=== PATIENT | female | born 1945 | race Caucasian/White ===

== ENCOUNTER 2019-12-25 14:46 | Emergency (ER) | payer OTHER ==
[~2019-12-25] VITALS: Ht 160 cm; Wt 127.0 kg
[2019-12-25 15:19] LABS: BASOPHILS ABSOLUTE AUTO 0.07 K/mm3 (0.00-0.23); BASOPHILS PERCENT AUTO 1 % (0-2); EOSINOPHILS ABSOLUTE AUTO 0.17 K/mm3 (0.00-0.68); EOSINOPHILS PERCENT AUTO 2 % (0-6); Hematocrit 45.2 % (33.0-51.0); Hemoglobin 14.8 g/dL (11.5-16.0); IMMATURE GRAN ABSOLUTE AUTO 0.02 K/mm3 (0.00-0.10); IMMATURE GRAN PERCENT AUTO 0 % (0-1); LYMPHOCYTES ABSOLUTE AUTO 2.44 K/mm3 (0.84-5.20); LYMPHOCYTES PERCENT AUTO 23 % (21-46); MONOCYTES ABSOLUTE AUTO 0.95 K/mm3 (0.16-1.47); MONOCYTES PERCENT AUTO 9 % (4-13); Mean Corpuscular HGB 29.4 pg (26.0-34.0); Mean Corpuscular HGB Conc 32.7 g/dL (31.5-36.5); Mean Corpuscular Volume 90 fL (80-100); Mean Platelet Volume 9.8 fL (9.1-12.4); NEUTROPHILS ABSOLUTE AUTO 7.17 K/mm3 (1.96-9.15); NEUTROPHILS PERCENT AUTO 66 % (41-73); Platelet Count 268 K/mm3 (150-400); RDW Standard Deviation 42.8 fL (35.1-46.3); Red Blood Cell Count 5.04 M/mm3 (3.80-5.20); White Blood Cell Count 10.82 K/mm3 (4.00-11.30)
[2019-12-25 15:33] LABS: Source, Urine Clean Catch
[2019-12-25 15:50] LABS: International Normalized Ratio No Calc; Prothrombin Time Results >90.0 Sec (9.7-11.5)
[2019-12-25 15:58] LABS: Appearance, Urine Clear (Clear); Bilirubin, Urine Neg (Neg); Blood, Urine 4+ (Neg); Color, Urine Yellow (P-Yellow); Glucose Qualitative, Urine Neg (Neg); Ketones, Urine Neg (Neg); Leukocyte Esterase, Urine 2+ (Neg); Nitrite, Urine Neg (Neg); Protein, Urine Neg (Neg); Urobilinogen, Urine NORM (Normal)
[2019-12-25 16:07] LABS: Digoxin (Lanoxin) 0.38 ug/mL (0.80-2.00)
[2019-12-25 16:08] LABS: Red Blood Cells, Urine 25-50 /hpf (0-2)
[2019-12-25 16:10] LABS: Bacteria Few /hpf; Squamous Epithelial Cells Few /hpf (Few)
[2019-12-25] MEDS ORDERED: ALBU90OI INH (16:44)
[2019-12-25] MEDS ORDERED: FURO40 PO (16:45)
[2019-12-25] MEDS ORDERED: GABA100 PO (16:45)
[2019-12-25] MEDS ORDERED: ATOR20 PO (16:45)
[2019-12-25] MEDS ORDERED: DILT180 PO (16:45)
[2019-12-25] MEDS ORDERED: LANOXIN125 MCG PO (16:45)
[2019-12-25] MEDS ORDERED: POTA10T PO (16:46)
[2019-12-25] MEDS ORDERED: METF500 PO (16:46)
[2019-12-25] MEDS ORDERED: LEVSOD112 PO (16:46)
[2019-12-25] MEDS ORDERED: IPRAT-ALBUT 0.5-3 ML INH (16:46)
[2019-12-25] MEDS ORDERED: METO100 PO (16:47)
[2019-12-25] MEDS ORDERED: Prilosec Otc20 MG PO (16:47)
[2019-12-25] MEDS ORDERED: Coumadin2.5 MG PO (16:48)
== END 2019-12-25 16:56 | disposition home or self-care (01) ==
LOC: ER 14:46
PROVIDERS: Physician Assistant
DX: R79.1 Abnormal coagulation profile (principal); I48.91 Unspecified atrial fibrillation; K21.9 Gastro-esophageal reflux disease without esophagitis; J45.909 Unspecified asthma, uncomplicated; E78.5 Hyperlipidemia, unspecified; E03.9 Hypothyroidism, unspecified; E66.9 Obesity, unspecified; Z79.01 Long term (current) use of anticoagulants; Z88.5 Allergy status to narcotic agent; Z79.899 Other long term (current) drug therapy; Z79.84 Long term (current) use of oral hypoglycemic drugs
CPT/HCPCS: 36415; 80162; 81001; 85025; 85610; 87086; 99283

== ENCOUNTER 2019-12-27 12:13 | Emergency (ER) | payer OTHER ==
[~2019-12-27] VITALS: Ht 167.6 cm; Wt 127.0 kg
[~2019-12-27 12:13] MED LIST: ALBU90OI INH; ATOR20 PO; Coumadin2.5 MG PO; DILT180 PO; FURO40 PO; GABA100 PO; IPRAT-ALBUT 0.5-3 ML INH; LANOXIN125 MCG PO; LEVSOD112 PO; METF500 PO; METO100 PO; POTA10T PO; Prilosec Otc20 MG PO
[2019-12-27 13:03] LABS: BASOPHILS ABSOLUTE AUTO 0.08 K/mm3 (0.00-0.23); BASOPHILS PERCENT AUTO 1 % (0-2); EOSINOPHILS ABSOLUTE AUTO 0.25 K/mm3 (0.00-0.68); EOSINOPHILS PERCENT AUTO 3 % (0-6); Hematocrit 45.7 % (33.0-51.0); Hemoglobin 15.1 g/dL (11.5-16.0); IMMATURE GRAN ABSOLUTE AUTO 0.02 K/mm3 (0.00-0.10); IMMATURE GRAN PERCENT AUTO 0 % (0-1); LYMPHOCYTES ABSOLUTE AUTO 2.56 K/mm3 (0.84-5.20); LYMPHOCYTES PERCENT AUTO 26 % (21-46); MONOCYTES ABSOLUTE AUTO 0.68 K/mm3 (0.16-1.47); MONOCYTES PERCENT AUTO 7 % (4-13); Mean Corpuscular HGB 29.4 pg (26.0-34.0); Mean Corpuscular Volume 89 fL (80-100); Mean Platelet Volume 9.9 fL (9.1-12.4); NEUTROPHILS PERCENT AUTO 63 % (41-73); Platelet Count 262 K/mm3 (150-400); RDW Coefficient Variation 12.7 % (11.7-14.2); Red Blood Cell Count 5.13 M/mm3 (3.80-5.20); White Blood Cell Count 9.79 K/mm3 (4.00-11.30)
[2019-12-27 13:20] LABS: International Normalized Ratio 2.13; Prothrombin Time Results 21.8 Sec (9.7-11.5)
[2019-12-27 13:24] LABS: Alanine Aminotransfer (ALT/SGP 19 U/L (12-78); Albumin, Blood 3.4 g/dL (3.4-5.0); Albumin/Globulin Ratio 0.7 (0.8-1.8); Alk Phos 118 U/L (50-136); Anion Gap 6 mmol/L (6-16); Aspartate Aminotrans (AST/SGOT 20 U/L (12-37); Bilirubin, Total 0.6 mg/dL (0.1-1.0); Blood Urea Nitrogen 11 mg/dL (8-24); Bun/Creatinine Ratio 13.2 (12.0-20.0); CO2, Blood 29 mmol/L (21-32); Calcium, Blood 9.2 mg/dL (8.5-10.1); Chloride, Blood 103 mmol/L (98-108); Creatinine, Blood 0.83 mg/dL (0.40-1.00); Globulin, Blood 4.8 g/dL (2.2-4.0); Glomerular Filtration Rate >60 (60-); Glucose, Blood 143 mg/dL (70-99); Potassium, Blood 3.4 mmol/L (3.5-5.5); Sodium, Blood 138 mmol/L (136-145); Total Protein, Blood 8.2 g/dL (6.4-8.2)
== END 2019-12-27 15:27 | disposition home or self-care (01) ==
LOC: ER 12:13
PROVIDERS: Physician Assistant
DX: R79.1 Abnormal coagulation profile (principal); Z79.899 Other long term (current) drug therapy; Z79.84 Long term (current) use of oral hypoglycemic drugs; Z79.01 Long term (current) use of anticoagulants
CPT/HCPCS: 36415; 80053; 85025; 85610; 85730; 99283

== ENCOUNTER → 2020-01-16 | Outpatient (CLI) | payer OTHER ==
[~2020-01-16] MED LIST changes: +HUMIRA40 MG/0.2 INJ; +LOSA25 PO; +MELATONIN10 M6 PO; +METO25ER PO; +XARELTO20 MG PO
[2020-01-16 20:07] LABS: Creatinine Urine 72.3 mg/dL (27.00-270.00); Protein, Urine Quantitative 33.4 mg/dL (0.0-11.9)
[2020-01-16 20:10] LABS: Microalbumin, Urine Quant. 86.1 mg/L (0.000-20.000)
== END | disposition home or self-care (01) ==
LOC: LAB UCHC 15:10 → LAB SHORT 15:10
PROVIDERS: Internal Medicine Nephrology
DX: E11.21 Type 2 diabetes mellitus with diabetic nephropathy (principal); E11.22 Type 2 diabetes mellitus with diabetic chronic kidney disease; N18.2 Chronic kidney disease, stage 2 (mild); D63.1 Anemia in chronic kidney disease; N25.81 Secondary hyperparathyroidism of renal origin; E55.9 Vitamin D deficiency, unspecified; E78.00 Pure hypercholesterolemia, unspecified; R76.9 Abnormal immunological finding in serum, unspecified; R94.5 Abnormal results of liver function studies; R94.6 Abnormal results of thyroid function studies
CPT/HCPCS: 81050; 82043; 82570; 84156

== ENCOUNTER 2020-01-20 00:32 | Day surgery (SDC) | payer OTHER ==
[~2020-01-20 00:32] MED LIST changes: -HUMIRA40 MG/0.2 INJ; -LOSA25 PO; -MELATONIN10 M6 PO; -METO25ER PO; -XARELTO20 MG PO
== END 2020-01-20 22:57 | disposition home or self-care (01) ==
LOC: WOUND 00:32
DX: I87.2 Venous insufficiency (chronic) (peripheral) (principal); E11.40 Type 2 diabetes mellitus with diabetic neuropathy, unspecified; I87.319 Chronic venous hypertension (idiopathic) with ulcer of unspecified lower extremity; E11.622 Type 2 diabetes mellitus with other skin ulcer; E11.59 Type 2 diabetes mellitus with other circulatory complications; Z88.5 Allergy status to narcotic agent; Z88.8 Allergy status to other drugs, medicaments and biological substances; Z87.891 Personal history of nicotine dependence; J45.909 Unspecified asthma, uncomplicated; E11.51 Type 2 diabetes mellitus with diabetic peripheral angiopathy without gangrene; Z79.899 Other long term (current) drug therapy; Z79.01 Long term (current) use of anticoagulants; Z79.84 Long term (current) use of oral hypoglycemic drugs
CPT/HCPCS: G0463

== ENCOUNTER 2020-01-27 00:18 | Day surgery (SDC) | payer OTHER | END 2020-01-27 23:07 | disposition home or self-care (01) | LOC: WOUND 00:18 | DX: E11.622 Type 2 diabetes mellitus with other skin ulcer (principal); L97.822 Non-pressure chronic ulcer of other part of left lower leg with fat layer exposed; E11.52 Type 2 diabetes mellitus with diabetic peripheral angiopathy with gangrene; I96 Gangrene, not elsewhere classified; I87.312 Chronic venous hypertension (idiopathic) with ulcer of left lower extremity; E11.40 Type 2 diabetes mellitus with diabetic neuropathy, unspecified; I87.2 Venous insufficiency (chronic) (peripheral); E11.59 Type 2 diabetes mellitus with other circulatory complications; I48.91 Unspecified atrial fibrillation; E11.36 Type 2 diabetes mellitus with diabetic cataract; H26.9 Unspecified cataract; D64.9 Anemia, unspecified; G47.30 Sleep apnea, unspecified; I49.9 Cardiac arrhythmia, unspecified; M19.90 Unspecified osteoarthritis, unspecified site; Z79.01 Long term (current) use of anticoagulants; Z79.84 Long term (current) use of oral hypoglycemic drugs; Z79.51 Long term (current) use of inhaled steroids; Z79.899 Other long term (current) drug therapy | CPT/HCPCS: G0463 ==

== ENCOUNTER 2020-02-03 00:23 | Day surgery (SDC) | payer OTHER | END 2020-02-03 23:49 | disposition home or self-care (01) | LOC: WOUND 00:23 | DX: E11.40 Type 2 diabetes mellitus with diabetic neuropathy, unspecified (principal); I87.2 Venous insufficiency (chronic) (peripheral); I87.319 Chronic venous hypertension (idiopathic) with ulcer of unspecified lower extremity; E11.622 Type 2 diabetes mellitus with other skin ulcer; E11.59 Type 2 diabetes mellitus with other circulatory complications; Z79.899 Other long term (current) drug therapy; Z79.84 Long term (current) use of oral hypoglycemic drugs ==

== ENCOUNTER 2020-02-05 06:40 | Day surgery (SDC) | payer OTHER | END 2020-02-05 22:52 | disposition home or self-care (01) | LOC: WOUND 06:40 | DX: E11.622 Type 2 diabetes mellitus with other skin ulcer (principal); L97.822 Non-pressure chronic ulcer of other part of left lower leg with fat layer exposed; E11.52 Type 2 diabetes mellitus with diabetic peripheral angiopathy with gangrene; I96 Gangrene, not elsewhere classified; E11.40 Type 2 diabetes mellitus with diabetic neuropathy, unspecified; I87.312 Chronic venous hypertension (idiopathic) with ulcer of left lower extremity; I87.2 Venous insufficiency (chronic) (peripheral); E11.59 Type 2 diabetes mellitus with other circulatory complications; E11.36 Type 2 diabetes mellitus with diabetic cataract; H26.9 Unspecified cataract; D64.9 Anemia, unspecified; I89.0 Lymphedema, not elsewhere classified; J45.909 Unspecified asthma, uncomplicated; G47.30 Sleep apnea, unspecified; M19.90 Unspecified osteoarthritis, unspecified site; Z79.51 Long term (current) use of inhaled steroids; Z79.84 Long term (current) use of oral hypoglycemic drugs; Z79.01 Long term (current) use of anticoagulants; Z79.899 Other long term (current) drug therapy; Z88.5 Allergy status to narcotic agent ==

== ENCOUNTER 2020-02-12 01:27 | Day surgery (SDC) | payer OTHER | END 2020-02-12 23:15 | disposition home or self-care (01) | LOC: WOUND 01:27 | DX: E11.622 Type 2 diabetes mellitus with other skin ulcer (principal); L97.822 Non-pressure chronic ulcer of other part of left lower leg with fat layer exposed; I87.312 Chronic venous hypertension (idiopathic) with ulcer of left lower extremity; E11.59 Type 2 diabetes mellitus with other circulatory complications; I87.2 Venous insufficiency (chronic) (peripheral); E11.40 Type 2 diabetes mellitus with diabetic neuropathy, unspecified; E11.36 Type 2 diabetes mellitus with diabetic cataract; H26.9 Unspecified cataract; D64.9 Anemia, unspecified; I89.0 Lymphedema, not elsewhere classified; J45.909 Unspecified asthma, uncomplicated; M19.90 Unspecified osteoarthritis, unspecified site; Z79.51 Long term (current) use of inhaled steroids; Z79.899 Other long term (current) drug therapy; Z79.01 Long term (current) use of anticoagulants; Z79.84 Long term (current) use of oral hypoglycemic drugs; Z88.5 Allergy status to narcotic agent ==

== ENCOUNTER 2020-02-20 00:28 | Day surgery (SDC) | payer OTHER ==
[2020-08-21] MEDS ORDERED: HUMIRA40 MG/0.2 INJ (17:00)
[2020-08-21] MEDS ORDERED: LOSA25 PO (17:03)
[2020-08-21] MEDS ORDERED: MELATONIN10 M6 PO (17:03)
[2020-08-21] MEDS ORDERED: METO25ER PO (17:04)
[2020-08-21] MEDS ORDERED: XARELTO20 MG PO (17:04)
== END 2020-02-20 23:36 | disposition home or self-care (01) ==
LOC: WOUND 00:28
DX: I87.312 Chronic venous hypertension (idiopathic) with ulcer of left lower extremity (principal); I48.91 Unspecified atrial fibrillation; E11.40 Type 2 diabetes mellitus with diabetic neuropathy, unspecified; E11.59 Type 2 diabetes mellitus with other circulatory complications; E11.622 Type 2 diabetes mellitus with other skin ulcer; L97.822 Non-pressure chronic ulcer of other part of left lower leg with fat layer exposed; I87.2 Venous insufficiency (chronic) (peripheral); Z79.01 Long term (current) use of anticoagulants
CPT/HCPCS: A9270

== ENCOUNTER 2020-02-28 02:11 | Day surgery (SDC) | payer OTHER ==
[2020-08-21] MEDS ORDERED: HUMIRA40 MG/0.2 INJ (17:00)
[2020-08-21] MEDS ORDERED: MELATONIN10 M6 PO (17:03)
[2020-08-21] MEDS ORDERED: LOSA25 PO (17:03)
[2020-08-21] MEDS ORDERED: XARELTO20 MG PO (17:04)
[2020-08-21] MEDS ORDERED: METO25ER PO (17:04)
== END 2020-02-28 23:56 | disposition home or self-care (01) ==
LOC: WOUND 02:11
DX: I87.312 Chronic venous hypertension (idiopathic) with ulcer of left lower extremity (principal); L97.822 Non-pressure chronic ulcer of other part of left lower leg with fat layer exposed; E11.40 Type 2 diabetes mellitus with diabetic neuropathy, unspecified; I87.2 Venous insufficiency (chronic) (peripheral); E11.622 Type 2 diabetes mellitus with other skin ulcer; E11.59 Type 2 diabetes mellitus with other circulatory complications; I48.91 Unspecified atrial fibrillation; Z79.84 Long term (current) use of oral hypoglycemic drugs; Z79.01 Long term (current) use of anticoagulants; Z79.899 Other long term (current) drug therapy
CPT/HCPCS: A9270

== ENCOUNTER 2020-03-03 00:31 | Day surgery (SDC) | payer OTHER ==
[2020-08-21] MEDS ORDERED: HUMIRA40 MG/0.2 INJ (17:00)
[2020-08-21] MEDS ORDERED: MELATONIN10 M6 PO (17:03)
[2020-08-21] MEDS ORDERED: LOSA25 PO (17:03)
[2020-08-21] MEDS ORDERED: METO25ER PO (17:04)
[2020-08-21] MEDS ORDERED: XARELTO20 MG PO (17:04)
== END 2020-03-03 23:17 | disposition home or self-care (01) ==
LOC: WOUND 00:31
DX: E11.622 Type 2 diabetes mellitus with other skin ulcer (principal); E11.40 Type 2 diabetes mellitus with diabetic neuropathy, unspecified; I87.2 Venous insufficiency (chronic) (peripheral); I87.319 Chronic venous hypertension (idiopathic) with ulcer of unspecified lower extremity; E11.59 Type 2 diabetes mellitus with other circulatory complications; Z79.84 Long term (current) use of oral hypoglycemic drugs; Z79.899 Other long term (current) drug therapy; Z88.5 Allergy status to narcotic agent
CPT/HCPCS: 36415; 80048; 80069; 80162; 85610

== ENCOUNTER 2020-03-06 00:35 | Day surgery (SDC) | payer OTHER ==
[2020-08-21] MEDS ORDERED: HUMIRA40 MG/0.2 INJ (17:00)
[2020-08-21] MEDS ORDERED: LOSA25 PO (17:03)
[2020-08-21] MEDS ORDERED: MELATONIN10 M6 PO (17:03)
[2020-08-21] MEDS ORDERED: XARELTO20 MG PO (17:04)
[2020-08-21] MEDS ORDERED: METO25ER PO (17:04)
== END 2020-03-06 22:47 | disposition home or self-care (01) ==
LOC: WOUND 00:35
DX: E11.622 Type 2 diabetes mellitus with other skin ulcer (principal); L97.829 Non-pressure chronic ulcer of other part of left lower leg with unspecified severity; E11.40 Type 2 diabetes mellitus with diabetic neuropathy, unspecified; E11.59 Type 2 diabetes mellitus with other circulatory complications; I87.319 Chronic venous hypertension (idiopathic) with ulcer of unspecified lower extremity
CPT/HCPCS: G0463

== ENCOUNTER → 2020-04-17 | Outpatient (CLI) | payer OTHER ==
[~2020-04-17] MED LIST changes: +HUMIRA40 MG/0.2 INJ; +LOSA25 PO; +MELATONIN10 M6 PO; +METO25ER PO; +XARELTO20 MG PO
== END | disposition home or self-care (01) ==
LOC: LAB 13:34 → LAB SHORT 13:34
DX: L08.9 Local infection of the skin and subcutaneous tissue, unspecified (principal)
CPT/HCPCS: 87070; 87077; 87186; 87205

== ENCOUNTER 2020-07-16 05:30 | Day surgery (SDC) | payer OTHER ==
[~2020-07-16 05:30] MED LIST changes: -HUMIRA40 MG/0.2 INJ; -LOSA25 PO; -MELATONIN10 M6 PO; -METO25ER PO; -XARELTO20 MG PO
[2020-08-21] MEDS ORDERED: HUMIRA40 MG/0.2 INJ (17:00)
[2020-08-21] MEDS ORDERED: MELATONIN10 M6 PO (17:03)
[2020-08-21] MEDS ORDERED: LOSA25 PO (17:03)
[2020-08-21] MEDS ORDERED: XARELTO20 MG PO (17:04)
[2020-08-21] MEDS ORDERED: METO25ER PO (17:04)
== END 2020-07-16 22:48 | disposition home or self-care (01) ==
LOC: WOUND 05:30
DX: L97.822 Non-pressure chronic ulcer of other part of left lower leg with fat layer exposed (principal); E11.40 Type 2 diabetes mellitus with diabetic neuropathy, unspecified; I87.2 Venous insufficiency (chronic) (peripheral); I87.319 Chronic venous hypertension (idiopathic) with ulcer of unspecified lower extremity; E11.622 Type 2 diabetes mellitus with other skin ulcer; E11.59 Type 2 diabetes mellitus with other circulatory complications
CPT/HCPCS: A9270; G0463

== ENCOUNTER 2020-07-28 01:28 | Day surgery (SDC) | payer OTHER ==
[2020-08-21] MEDS ORDERED: HUMIRA40 MG/0.2 INJ (17:00)
[2020-08-21] MEDS ORDERED: MELATONIN10 M6 PO (17:03)
[2020-08-21] MEDS ORDERED: LOSA25 PO (17:03)
[2020-08-21] MEDS ORDERED: METO25ER PO (17:04)
[2020-08-21] MEDS ORDERED: XARELTO20 MG PO (17:04)
== END 2020-07-28 22:59 | disposition home or self-care (01) ==
LOC: WOUND 01:28
DX: E11.622 Type 2 diabetes mellitus with other skin ulcer (principal); L97.822 Non-pressure chronic ulcer of other part of left lower leg with fat layer exposed; L97.812 Non-pressure chronic ulcer of other part of right lower leg with fat layer exposed; S91.102A Unspecified open wound of left great toe without damage to nail, initial encounter; X58.XXXA Exposure to other specified factors, initial encounter; E11.59 Type 2 diabetes mellitus with other circulatory complications; E11.40 Type 2 diabetes mellitus with diabetic neuropathy, unspecified; I87.2 Venous insufficiency (chronic) (peripheral); I87.319 Chronic venous hypertension (idiopathic) with ulcer of unspecified lower extremity
CPT/HCPCS: A9270

== ENCOUNTER 2020-07-31 04:45 | Day surgery (SDC) | payer OTHER ==
[2020-08-21] MEDS ORDERED: HUMIRA40 MG/0.2 INJ (17:00)
[2020-08-21] MEDS ORDERED: MELATONIN10 M6 PO (17:03)
[2020-08-21] MEDS ORDERED: LOSA25 PO (17:03)
[2020-08-21] MEDS ORDERED: METO25ER PO (17:04)
[2020-08-21] MEDS ORDERED: XARELTO20 MG PO (17:04)
== END 2020-07-31 23:54 | disposition home or self-care (01) ==
LOC: WOUND 04:45
DX: S81.801A Unspecified open wound, right lower leg, initial encounter (principal); S81.802A Unspecified open wound, left lower leg, initial encounter; E11.9 Type 2 diabetes mellitus without complications

== ENCOUNTER 2020-08-04 05:02 | Day surgery (SDC) | payer OTHER ==
[2020-08-21] MEDS ORDERED: HUMIRA40 MG/0.2 INJ (17:00)
[2020-08-21] MEDS ORDERED: LOSA25 PO (17:03)
[2020-08-21] MEDS ORDERED: MELATONIN10 M6 PO (17:03)
[2020-08-21] MEDS ORDERED: METO25ER PO (17:04)
[2020-08-21] MEDS ORDERED: XARELTO20 MG PO (17:04)
== END 2020-08-04 23:15 | disposition home or self-care (01) ==
LOC: WOUND 05:02
DX: E11.622 Type 2 diabetes mellitus with other skin ulcer (principal); L97.822 Non-pressure chronic ulcer of other part of left lower leg with fat layer exposed; L97.812 Non-pressure chronic ulcer of other part of right lower leg with fat layer exposed; E11.40 Type 2 diabetes mellitus with diabetic neuropathy, unspecified; I87.2 Venous insufficiency (chronic) (peripheral); I87.319 Chronic venous hypertension (idiopathic) with ulcer of unspecified lower extremity; E11.59 Type 2 diabetes mellitus with other circulatory complications
CPT/HCPCS: A9270

== ENCOUNTER → 2020-08-11 | Outpatient (CLI) | payer OTHER ==
[~2020-08-11] MED LIST changes: +HUMIRA40 MG/0.2 INJ; +LOSA25 PO; +MELATONIN10 M6 PO; +METO25ER PO; +XARELTO20 MG PO
== END | disposition home or self-care (01) ==
LOC: LAB SHORT 10:24
DX: N18.2 Chronic kidney disease, stage 2 (mild) (principal); D63.1 Anemia in chronic kidney disease; N25.81 Secondary hyperparathyroidism of renal origin; E55.9 Vitamin D deficiency, unspecified; E78.00 Pure hypercholesterolemia, unspecified; R76.9 Abnormal immunological finding in serum, unspecified; R94.5 Abnormal results of liver function studies; R94.6 Abnormal results of thyroid function studies
CPT/HCPCS: 86335

== ENCOUNTER 2020-08-12 02:55 | Day surgery (SDC) | payer OTHER ==
[~2020-08-12 02:55] MED LIST changes: -HUMIRA40 MG/0.2 INJ; -LOSA25 PO; -MELATONIN10 M6 PO; -METO25ER PO; -XARELTO20 MG PO
[2020-08-21] MEDS ORDERED: HUMIRA40 MG/0.2 INJ (17:00)
[2020-08-21] MEDS ORDERED: MELATONIN10 M6 PO (17:03)
[2020-08-21] MEDS ORDERED: LOSA25 PO (17:03)
[2020-08-21] MEDS ORDERED: METO25ER PO (17:04)
[2020-08-21] MEDS ORDERED: XARELTO20 MG PO (17:04)
== END 2020-08-12 23:39 | disposition home or self-care (01) ==
LOC: WOUND 02:55
DX: I87.319 Chronic venous hypertension (idiopathic) with ulcer of unspecified lower extremity (principal); E11.622 Type 2 diabetes mellitus with other skin ulcer; E11.40 Type 2 diabetes mellitus with diabetic neuropathy, unspecified; I87.2 Venous insufficiency (chronic) (peripheral); E11.59 Type 2 diabetes mellitus with other circulatory complications
CPT/HCPCS: A9270

== ENCOUNTER 2020-08-19 01:13 | Day surgery (SDC) | payer OTHER ==
[2020-08-21] MEDS ORDERED: HUMIRA40 MG/0.2 INJ (17:00)
[2020-08-21] MEDS ORDERED: LOSA25 PO (17:03)
[2020-08-21] MEDS ORDERED: MELATONIN10 M6 PO (17:03)
[2020-08-21] MEDS ORDERED: METO25ER PO (17:04)
[2020-08-21] MEDS ORDERED: XARELTO20 MG PO (17:04)
== END 2020-08-19 23:52 | disposition home or self-care (01) ==
LOC: WOUND 01:13
DX: E11.622 Type 2 diabetes mellitus with other skin ulcer (principal); L97.822 Non-pressure chronic ulcer of other part of left lower leg with fat layer exposed; E11.59 Type 2 diabetes mellitus with other circulatory complications; E11.40 Type 2 diabetes mellitus with diabetic neuropathy, unspecified; I87.2 Venous insufficiency (chronic) (peripheral); I87.319 Chronic venous hypertension (idiopathic) with ulcer of unspecified lower extremity
CPT/HCPCS: A9270

== ENCOUNTER 2020-08-24 08:52 | Day surgery (SDC) | payer OTHER ==
[~2020-08-24] VITALS: Ht 167.6 cm; Wt 128.6 kg
[~2020-08-24 08:52] MED LIST changes: +HUMIRA40 MG/0.2 INJ; +LOSA25 PO; +MELATONIN10 M6 PO; +METO25ER PO; +XARELTO20 MG PO
[2020-08-24 09:33] LABS: BASOPHILS ABSOLUTE AUTO 0.07 K/mm3 (0.00-0.23); BASOPHILS PERCENT AUTO 1 % (0-2); EOSINOPHILS ABSOLUTE AUTO 0.39 K/mm3 (0.00-0.68); EOSINOPHILS PERCENT AUTO 5 % (0-6); Hematocrit 42.8 % (33.0-51.0); Hemoglobin 13.7 g/dL (11.5-16.0); IMMATURE GRAN ABSOLUTE AUTO 0.02 K/mm3 (0.00-0.10); IMMATURE GRAN PERCENT AUTO 0 % (0-1); LYMPHOCYTES ABSOLUTE AUTO 2.12 K/mm3 (0.84-5.20); LYMPHOCYTES PERCENT AUTO 26 % (21-46); MONOCYTES ABSOLUTE AUTO 0.67 K/mm3 (0.16-1.47); MONOCYTES PERCENT AUTO 8 % (4-13); Mean Corpuscular HGB 29.3 pg (26.0-34.0); Mean Corpuscular Volume 92 fL (80-100); Mean Platelet Volume 10.1 fL (9.1-12.4); NEUTROPHILS ABSOLUTE AUTO 4.82 K/mm3 (1.96-9.15); NEUTROPHILS PERCENT AUTO 60 % (41-73); Platelet Count 218 K/mm3 (150-400); RDW Coefficient Variation 13.8 % (11.7-14.2); RDW Standard Deviation 46.8 fL (35.1-46.3); Red Blood Cell Count 4.67 M/mm3 (3.80-5.20); White Blood Cell Count 8.09 K/mm3 (4.00-11.30)
[2020-08-24 09:46] LABS: International Normalized Ratio 1.02
[2020-08-24 09:57] LABS: Anion Gap 4 mmol/L (6-16); Blood Urea Nitrogen 15 mg/dL (8-24); CO2, Blood 31 mmol/L (21-32); Calcium, Blood 9.3 mg/dL (8.5-10.1); Chloride, Blood 104 mmol/L (98-108); Creatinine, Blood 0.83 mg/dL (0.40-1.00); Glomerular Filtration Rate >60 (60-); Glucose, Blood 102 mg/dL (70-99); Potassium, Blood 3.4 mmol/L (3.5-5.5); Sodium, Blood 139 mmol/L (136-145)
--- NOTE | 2020-08-24 11:45 | NUR ---
.TO RECOVERY ROOM VIA RECLINER. RIGHT HAND IS BLUE. WIGGLED FINGERS AND HAND PINKS UP. TR BAND WITH 11 CC AIR. DENIES CHEST PAIN AT THIS TIME. CD MADE.
--- NOTE | 2020-08-24 13:36 | NUR ---
2 CC AIR REMOVED FROM TR BAND. NO BLEEDING AT SITE. REMINDER OF AIR REMOVED OVER 10 MINUTES FROM TR BAND. NO BLEEDING AT SITE.
--- NOTE | 2020-08-24 13:57 | NUR ---
AMBULATED TO BATHROOM. TOLERATED WELL.
--- NOTE | 2020-08-24 14:30 | NUR ---
TR BAND REMOVED BY PADMINI SPICER. CLOTH DOT, IMMOBILIZER AND SLING APPLIED. DISCHARGE INSTRUCTIONS GIVEN WITH VERBAL AND WRITTEN UNDERSTANDING. CD WITH PT.
--- NOTE | 2020-08-24 15:00 | NUR ---
IV REMOVED INTACT. 2X2, COBAN AND MANUAL PRESSURE APPLIED.
--- NOTE | 2020-08-24 15:15 | NUR ---
DISCHARGED HOME VIA WHEELCHAIR. DAUGHTER DRIVING.
== END 2020-08-24 15:39 | disposition home or self-care (01) ==
LOC: MHTC 08:52
PROVIDERS: Internal Medicine Cardiovascular Disease
DX: I35.0 Nonrheumatic aortic (valve) stenosis (principal); I25.10 Atherosclerotic heart disease of native coronary artery without angina pectoris; I48.0 Paroxysmal atrial fibrillation; I10 Essential (primary) hypertension; E11.9 Type 2 diabetes mellitus without complications; E03.9 Hypothyroidism, unspecified; E66.01 Morbid (severe) obesity due to excess calories; J44.9 Chronic obstructive pulmonary disease, unspecified; G47.33 Obstructive sleep apnea (adult) (pediatric); I87.2 Venous insufficiency (chronic) (peripheral); E78.00 Pure hypercholesterolemia, unspecified; Z88.5 Allergy status to narcotic agent; Z79.01 Long term (current) use of anticoagulants; Z68.42 Body mass index [BMI] 45.0-49.9, adult
CPT/HCPCS: 76937; 80048; 85025; 85610; 93454; 99152; A9270; C1769; C1894; J1644; J2250; J3010; J7030; J7050; Q9967

== ENCOUNTER 2020-08-25 01:01 | Day surgery (SDC) | payer OTHER | END 2020-08-25 23:31 | disposition home or self-care (01) | LOC: WOUND 01:01 | DX: E11.622 Type 2 diabetes mellitus with other skin ulcer (principal); L97.829 Non-pressure chronic ulcer of other part of left lower leg with unspecified severity; E11.40 Type 2 diabetes mellitus with diabetic neuropathy, unspecified; I87.2 Venous insufficiency (chronic) (peripheral); I87.319 Chronic venous hypertension (idiopathic) with ulcer of unspecified lower extremity; E11.59 Type 2 diabetes mellitus with other circulatory complications ==

== ENCOUNTER 2020-09-02 02:08 | Day surgery (SDC) | payer OTHER | END 2020-09-02 23:32 | disposition home or self-care (01) | LOC: WOUND 02:08 | DX: L97.822 Non-pressure chronic ulcer of other part of left lower leg with fat layer exposed (principal); I87.2 Venous insufficiency (chronic) (peripheral); E11.622 Type 2 diabetes mellitus with other skin ulcer; E11.40 Type 2 diabetes mellitus with diabetic neuropathy, unspecified; I87.319 Chronic venous hypertension (idiopathic) with ulcer of unspecified lower extremity; E11.59 Type 2 diabetes mellitus with other circulatory complications; Z88.5 Allergy status to narcotic agent | CPT/HCPCS: A9270 ==

== ENCOUNTER 2020-09-09 01:29 | Day surgery (SDC) | payer OTHER | END 2020-09-09 22:47 | disposition home or self-care (01) | LOC: WOUND 01:29 | DX: L97.829 Non-pressure chronic ulcer of other part of left lower leg with unspecified severity (principal); E11.622 Type 2 diabetes mellitus with other skin ulcer; E11.40 Type 2 diabetes mellitus with diabetic neuropathy, unspecified; I87.2 Venous insufficiency (chronic) (peripheral); I87.319 Chronic venous hypertension (idiopathic) with ulcer of unspecified lower extremity; E11.59 Type 2 diabetes mellitus with other circulatory complications | CPT/HCPCS: A9270; G0463 ==

== ENCOUNTER 2020-09-16 01:28 | Day surgery (SDC) | payer OTHER | END 2020-09-16 23:15 | disposition home or self-care (01) | LOC: WOUND 01:28 | DX: E11.622 Type 2 diabetes mellitus with other skin ulcer (principal); L97.829 Non-pressure chronic ulcer of other part of left lower leg with unspecified severity; E11.40 Type 2 diabetes mellitus with diabetic neuropathy, unspecified; I87.2 Venous insufficiency (chronic) (peripheral); I87.319 Chronic venous hypertension (idiopathic) with ulcer of unspecified lower extremity; E11.59 Type 2 diabetes mellitus with other circulatory complications | CPT/HCPCS: G0463 ==

== ENCOUNTER 2020-09-23 01:37 | Day surgery (SDC) | payer OTHER | END 2020-09-23 22:47 | disposition home or self-care (01) | LOC: WOUND 01:37 | DX: E11.622 Type 2 diabetes mellitus with other skin ulcer (principal); L97.828 Non-pressure chronic ulcer of other part of left lower leg with other specified severity; E11.40 Type 2 diabetes mellitus with diabetic neuropathy, unspecified; E11.59 Type 2 diabetes mellitus with other circulatory complications; I87.319 Chronic venous hypertension (idiopathic) with ulcer of unspecified lower extremity; I87.2 Venous insufficiency (chronic) (peripheral) | CPT/HCPCS: G0463 ==

== ENCOUNTER 2020-09-30 02:43 | Day surgery (SDC) | payer OTHER | END 2020-09-30 23:17 | disposition home or self-care (01) | LOC: WOUND 02:43 | DX: E11.622 Type 2 diabetes mellitus with other skin ulcer (principal); L98.499 Non-pressure chronic ulcer of skin of other sites with unspecified severity; I87.319 Chronic venous hypertension (idiopathic) with ulcer of unspecified lower extremity; E11.40 Type 2 diabetes mellitus with diabetic neuropathy, unspecified; I87.2 Venous insufficiency (chronic) (peripheral); E11.59 Type 2 diabetes mellitus with other circulatory complications | CPT/HCPCS: G0463 ==

== ENCOUNTER 2020-10-07 00:33 | Day surgery (SDC) | payer OTHER | END 2020-10-07 23:23 | disposition home or self-care (01) | LOC: WOUND 00:33 | DX: S81.802A Unspecified open wound, left lower leg, initial encounter (principal); X58.XXXA Exposure to other specified factors, initial encounter; E11.622 Type 2 diabetes mellitus with other skin ulcer; E11.40 Type 2 diabetes mellitus with diabetic neuropathy, unspecified; I87.2 Venous insufficiency (chronic) (peripheral); I87.319 Chronic venous hypertension (idiopathic) with ulcer of unspecified lower extremity; E11.59 Type 2 diabetes mellitus with other circulatory complications | CPT/HCPCS: G0463 ==

== ENCOUNTER 2020-10-21 02:21 | Day surgery (SDC) | payer OTHER | END 2020-10-21 23:52 | disposition home or self-care (01) | LOC: WOUND 02:21 | DX: Z09 Encounter for follow-up examination after completed treatment for conditions other than malignant neoplasm (principal); E11.59 Type 2 diabetes mellitus with other circulatory complications; E11.40 Type 2 diabetes mellitus with diabetic neuropathy, unspecified; I87.2 Venous insufficiency (chronic) (peripheral); I87.319 Chronic venous hypertension (idiopathic) with ulcer of unspecified lower extremity; Z88.5 Allergy status to narcotic agent; Z87.2 Personal history of diseases of the skin and subcutaneous tissue | CPT/HCPCS: G0463 ==

== ENCOUNTER → 2022-01-24 | Outpatient (CLI) | payer OTHER | END | disposition home or self-care (01) | LOC: LAB 11:03 → LAB SHORT 11:03 | DX: R31.9 Hematuria, unspecified (principal) | CPT/HCPCS: 87086 ==

== ENCOUNTER 2022-09-07 08:29 | Day surgery (SDC) | payer OTHER ==
[~2022-09-07] VITALS: Ht 167.6 cm; Wt 124.0 kg
[2022-09-07] MEDS ORDERED: ASPI81CH (09:00)
[2022-09-07] MEDS ORDERED: BENZ100A (09:00)
[2022-09-07] MEDS ORDERED: CALCIUM CARBON500 M1 (09:01)
[2022-09-07] MEDS ORDERED: Vitamin D1000 UNI1 (09:01)
[2022-09-07] MEDS ORDERED: [UNRECOGNIZED DRUG - OTHER] (09:02)
[2022-09-07] MEDS ORDERED: MUPIROCIN15 GM (09:03)
[2022-09-07] MEDS ORDERED: POTA10T (09:03)
[2022-09-07] MEDS ORDERED: TRAZ50 (09:03)
[2022-09-07] MEDS ORDERED: OMEP20ER (09:03)
[2022-09-07] MEDS ORDERED: HYDROCORT 2.5%-30 GM (09:07)
[2022-09-07 13:24] VITALS: BP 141/67
--- NOTE | 2022-09-07 13:27 | NUR ---
09/07/22 1327 Felicita Holt IV DC'D WITH 400ML LEFT IN BAG. IV SITE WNL AND WRAPPED IN COBAN. PT TOLERATED WELL.
== END 2022-09-07 11:50 | disposition home or self-care (01) ==
LOC: ORSCSDS 08:29
PROVIDERS: Internal Medicine Gastroenterology
PROC: 0DBL8ZX Excision of Transverse Colon, Via Natural or Artificial Opening Endoscopic, Diagnostic (ICD-10-PCS; principal; 2022-09-07 10:00)
PROC: 0DBN8ZX Excision of Sigmoid Colon, Via Natural or Artificial Opening Endoscopic, Diagnostic (ICD-10-PCS; principal; 2022-09-07 10:00)
PROC: 0DB58ZX Excision of Esophagus, Via Natural or Artificial Opening Endoscopic, Diagnostic (ICD-10-PCS; principal; 2022-09-07 10:00)
PROC: 0DBM8ZX Excision of Descending Colon, Via Natural or Artificial Opening Endoscopic, Diagnostic (ICD-10-PCS; principal; 2022-09-07 10:00)
PROC: 0DBK8ZX Excision of Ascending Colon, Via Natural or Artificial Opening Endoscopic, Diagnostic (ICD-10-PCS; principal; 2022-09-07 10:00)
DX: Z12.11 Encounter for screening for malignant neoplasm of colon (principal); K22.70 Barrett's esophagus without dysplasia; Z86.010 Personal history of colon polyps; K21.00 Gastro-esophageal reflux disease with esophagitis, without bleeding; D12.4 Benign neoplasm of descending colon; D12.2 Benign neoplasm of ascending colon; D12.3 Benign neoplasm of transverse colon; K63.5 Polyp of colon; K57.30 Diverticulosis of large intestine without perforation or abscess without bleeding; K64.8 Other hemorrhoids; I48.91 Unspecified atrial fibrillation; G47.33 Obstructive sleep apnea (adult) (pediatric); K21.9 Gastro-esophageal reflux disease without esophagitis; E03.9 Hypothyroidism, unspecified; Z79.899 Other long term (current) drug therapy; E66.01 Morbid (severe) obesity due to excess calories; Z68.41 Body mass index [BMI] 40.0-44.9, adult
CPT/HCPCS: 82947; 88305; J2704; J7120

== ENCOUNTER → 2023-06-02 | Outpatient (CLI) | payer OTHER ==
[~2023-06-02] MED LIST changes: +ASPI81CH; +BENZ100A; +CALCIUM CARBON500 M1; +HYDROCORT 2.5%-30 GM; +MUPIROCIN15 GM; +OMEP20ER; +POTA10T; +TRAZ50; +Vitamin D1000 UNI1; +[UNRECOGNIZED DRUG - OTHER]
[2023-06-02 13:01] LABS: BASOPHILS ABSOLUTE AUTO 0.03 K/mm3 (0.00-0.23); BASOPHILS PERCENT AUTO 0 % (0-2); EOSINOPHILS ABSOLUTE AUTO 0.08 K/mm3 (0.00-0.68); EOSINOPHILS PERCENT AUTO 1 % (0-6); Hematocrit 41.8 % (33.0-51.0); Hemoglobin 13.4 g/dL (11.5-16.0); IMMATURE GRAN ABSOLUTE AUTO 0.02 K/mm3 (0.00-0.10); IMMATURE GRAN PERCENT AUTO 0 % (0-1); LYMPHOCYTES ABSOLUTE AUTO 1.75 K/mm3 (0.84-5.20); LYMPHOCYTES PERCENT AUTO 19 % (21-46); MONOCYTES ABSOLUTE AUTO 0.71 K/mm3 (0.16-1.47); MONOCYTES PERCENT AUTO 8 % (4-13); Mean Corpuscular HGB 30.2 pg (26.0-34.0); Mean Corpuscular HGB Conc 32.1 g/dL (31.5-36.5); Mean Corpuscular Volume 94 fL (80-100); Mean Platelet Volume 10.5 fL (9.1-12.4); NEUTROPHILS ABSOLUTE AUTO 6.68 K/mm3 (1.96-9.15); NEUTROPHILS PERCENT AUTO 72 % (41-73); Platelet Count 205 K/mm3 (150-400); RDW Coefficient Variation 13.2 % (11.7-14.2); RDW Standard Deviation 45.4 fL (35.1-46.3); Red Blood Cell Count 4.44 M/mm3 (3.80-5.20); White Blood Cell Count 9.27 K/mm3 (4.00-11.30)
[2023-06-02 14:12] LABS: Alanine Aminotransfer (ALT/SGP 24 U/L (12-78); Albumin, Blood 3.2 g/dL (3.4-5.0); Albumin/Globulin Ratio 0.8 (0.8-1.8); Alk Phos 119 U/L (50-136); Anion Gap 6 mmol/L (3-11); Aspartate Aminotrans (AST/SGOT 24 U/L (12-37); Bilirubin, Total 0.5 mg/dL (0.1-1.0); Blood Urea Nitrogen 10 mg/dL (8-24); Bun/Creatinine Ratio 14.1 (12.0-20.0); CHOL/HDL RATIO 3.1; CO2, Blood 31 mmol/L (21-32); Calcium, Blood 9.3 mg/dL (8.5-10.1); Chloride, Blood 107 mmol/L (98-108); Cholesterol 183 mg/dL (50-200); Creatinine, Blood 0.71 mg/dL (0.40-1.00); Globulin, Blood 4.2 g/dL (2.2-4.0); Glomerular Filtration Rate 87 (60-); Glucose, Blood 103 mg/dL (70-99); HDL Cholesterol 59 mg/dL (>39); LDL/HDL RATIO 1.7; Low Density Lipoprotein Chol 103 mg/dL (0-110); Potassium, Blood 3.7 mmol/L (3.5-5.5); Sodium, Blood 140 mmol/L (136-145); Thyroid Stimulating Hormone 0.985 uIU/mL (0.360-4.800); Total Protein, Blood 7.4 g/dL (6.4-8.2); Triglycerides 104 mg/dL (30-160); Very Low Density Lipoprot Chol 20 mg/dL (6-32)
== END ==
LOC: LAB SHORT 10:48 → LAB 10:48
PROVIDERS: Family Medicine
DX: Z51.81 Encounter for therapeutic drug level monitoring (principal); Z79.899 Other long term (current) drug therapy
CPT/HCPCS: 80053; 80061; 82306; 83036; 84443; 85025

== ENCOUNTER → 2023-08-07 | Outpatient (CLI) | payer OTHER | END | disposition home or self-care (01) | LOC: LAB SHORT 11:14 → LAB 11:14 | DX: I35.0 Nonrheumatic aortic (valve) stenosis (principal) | CPT/HCPCS: 83880 ==

== ENCOUNTER → 2023-08-14 | Outpatient (CLI) | payer OTHER ==
[2023-08-14 17:08] LABS: Albumin, Blood 3.2 g/dL (3.4-5.0); Albumin/Globulin Ratio 0.7 (0.8-1.8); Bilirubin, Total 0.6 mg/dL (0.1-1.0); Bun/Creatinine Ratio 15.7 (12.0-20.0); Creatinine, Blood 0.89 mg/dL (0.40-1.00); Globulin, Blood 4.5 g/dL (2.2-4.0); Total Protein, Blood 7.7 g/dL (6.4-8.2)
== END | disposition home or self-care (01) ==
LOC: LAB 15:09 → LAB SHORT 15:09
PROVIDERS: Nurse Practitioner Family
DX: I50.9 Heart failure, unspecified (principal)
CPT/HCPCS: 80053; 83880

== ENCOUNTER → 2023-08-21 | Outpatient (CLI) | payer OTHER ==
[2023-08-21 17:08] LABS: Albumin, Blood 3.1 g/dL (3.4-5.0); Albumin/Globulin Ratio 0.7 (0.8-1.8); Bilirubin, Direct 0.2 mg/dL (0.0-0.3); Bilirubin, Indirect 0.3 mg/dL (0.1-0.7); Bilirubin, Total 0.5 mg/dL (0.1-1.0); Globulin, Blood 4.4 g/dL (2.2-4.0); Total Protein, Blood 7.5 g/dL (6.4-8.2)
== END ==
LOC: LAB 09:58 → LAB SHORT 09:58
PROVIDERS: Nurse Practitioner Family
DX: R89.9 Unspecified abnormal finding in specimens from other organs, systems and tissues (principal)
CPT/HCPCS: 80076

== ENCOUNTER → 2023-11-20 | Outpatient (CLI) | payer OTHER ==
[2023-11-20 22:01] LABS: Free Thyroxine 1.06 ng/dL (0.70-1.60)
[2023-11-20 22:05] LABS: Thyroid Stimulating Hormone 1.6 uIU/mL (0.360-4.800)
== END | disposition home or self-care (01) ==
LOC: LAB SHORT 17:59 → LAB 17:59
PROVIDERS: Nurse Practitioner Family
DX: L65.9 Nonscarring hair loss, unspecified (principal)
CPT/HCPCS: 84439; 84443

== ENCOUNTER → 2024-04-22 | Outpatient (CLI) | payer OTHER ==
[2024-04-22 16:14] LABS: BASOPHILS ABSOLUTE AUTO 0.06 K/mm3 (0.00-0.23); BASOPHILS PERCENT AUTO 1 % (0-2); EOSINOPHILS ABSOLUTE AUTO 0.21 K/mm3 (0.00-0.68); EOSINOPHILS PERCENT AUTO 3 % (0-6); Hematocrit 45.2 % (33.0-51.0); Hemoglobin 14.6 g/dL (11.5-16.0); IMMATURE GRAN ABSOLUTE AUTO 0.03 K/mm3 (0.00-0.10); IMMATURE GRAN PERCENT AUTO 0 % (0-1); LYMPHOCYTES ABSOLUTE AUTO 1.95 K/mm3 (0.84-5.20); LYMPHOCYTES PERCENT AUTO 25 % (21-46); MONOCYTES ABSOLUTE AUTO 0.54 K/mm3 (0.16-1.47); MONOCYTES PERCENT AUTO 7 % (4-13); Mean Corpuscular HGB 31.1 pg (26.0-34.0); Mean Corpuscular HGB Conc 32.3 g/dL (31.5-36.5); Mean Corpuscular Volume 96 fL (80-100); Mean Platelet Volume 10.5 fL (9.1-12.4); NEUTROPHILS ABSOLUTE AUTO 5.16 K/mm3 (1.96-9.15); NEUTROPHILS PERCENT AUTO 65 % (41-73); Platelet Count 212 K/mm3 (150-400); RDW Coefficient Variation 13.2 % (11.7-14.2); RDW Standard Deviation 47.5 fL (35.1-46.3); White Blood Cell Count 7.95 K/mm3 (4.00-11.30)
[2024-04-22 19:01] LABS: Percent Saturation 23.2 % (15.0-50.0)
== END | disposition home or self-care (01) ==
LOC: LAB 10:35 → LAB SHORT 10:35
PROVIDERS: Nurse Practitioner Family
DX: E11.42 Type 2 diabetes mellitus with diabetic polyneuropathy (principal); E11.628 Type 2 diabetes mellitus with other skin complications; E11.65 Type 2 diabetes mellitus with hyperglycemia; D50.9 Iron deficiency anemia, unspecified
CPT/HCPCS: 83036; 83540; 83550; 83880; 85025

== ENCOUNTER 2025-01-06 16:02 | Emergency (ER) | payer OTHER ==
[~2025-01-06] VITALS: Ht 167.6 cm; Wt 127.0 kg
[~2025-01-06 16:02] MED LIST changes: -Diflucan150 MG; -ELIQUIS5 M2 PO; -FUROSEMIDE20 MG PO; -JARDIANCE10 MG PO; -MONT10T PO; -Toprol Xl50 MG PO
[2025-01-06 16:43] LABS: BASOPHILS ABSOLUTE AUTO 0.05 K/mm3 (0.00-0.23); BASOPHILS PERCENT AUTO 1 % (0-2); EOSINOPHILS ABSOLUTE AUTO 0.24 K/mm3 (0.00-0.68); EOSINOPHILS PERCENT AUTO 3 % (0-6); Hematocrit 43.5 % (33.0-51.0); Hemoglobin 13.9 g/dL (11.5-16.0); IMMATURE GRAN ABSOLUTE AUTO 0.02 K/mm3 (0.00-0.10); IMMATURE GRAN PERCENT AUTO 0 % (0-1); LYMPHOCYTES ABSOLUTE AUTO 2.20 K/mm3 (0.84-5.20); LYMPHOCYTES PERCENT AUTO 25 % (21-46); MONOCYTES ABSOLUTE AUTO 0.77 K/mm3 (0.16-1.47); MONOCYTES PERCENT AUTO 9 % (4-13); Mean Corpuscular HGB Conc 32.0 g/dL (31.5-36.5); Mean Corpuscular Volume 97 fL (80-100); NEUTROPHILS ABSOLUTE AUTO 5.63 K/mm3 (1.96-9.15); NEUTROPHILS PERCENT AUTO 63 % (41-73); NRBC ABSOLUTE 0.00 K/mm3 (0.00-0.02); NRBC Auto 0.0 /100 WBC (0.0-0.2); Platelet Count 201 K/mm3 (150-400); RDW Coefficient Variation 13.8 % (11.7-14.2); RDW Standard Deviation 48.6 fL (35.1-46.3)
[2025-01-06 17:09] LABS: Alanine Aminotransfer (ALT/SGP 27.0 U/L (12-78); Albumin, Blood 3.4 g/dL (3.4-5.0); Albumin/Globulin Ratio 0.8 (0.8-1.8); Anion Gap 6.0 mmol/L (3-11); Aspartate Aminotrans (AST/SGOT 21.0 U/L (12-37); Bilirubin, Total 0.5 mg/dL (0.1-1.0); Blood Urea Nitrogen 13.0 mg/dL (8-24); CO2, Blood 30.0 mmol/L (21-32); Calcium, Blood 9.3 mg/dL (8.5-10.1); Chloride, Blood 105.0 mmol/L (98-108); Creatinine, Blood 0.74 mg/dL (0.40-1.00); Globulin, Blood 4.1 g/dL (2.2-4.0); Glucose, Blood 94.0 mg/dL (70-99); Potassium, Blood 3.4 mmol/L (3.5-5.5); Sodium, Blood 138.0 mmol/L (136-145); Total Protein, Blood 7.5 g/dL (6.4-8.2)
[2025-01-06 17:34] VITALS: BP 117/78
[2025-01-06] MEDS ORDERED: Potassium Chloride 10 Meq Tablet SA PO ONE (17:40)
[2025-01-06] MEDS ORDERED: JARDIANCE10 MG PO (17:42)
[2025-01-06] MEDS ORDERED: MONT10T PO (17:43)
[2025-01-06] MEDS ORDERED: FUROSEMIDE20 MG PO (17:43)
[2025-01-06] MEDS ORDERED: Diflucan150 MG (17:43)
[2025-01-06] MEDS ORDERED: Toprol Xl50 MG PO (17:44)
[2025-01-06] MEDS ORDERED: ELIQUIS5 M2 PO (17:44)
== END 2025-01-06 17:59 | disposition home or self-care (01) ==
LOC: ER 16:02
PROVIDERS: Student in an Organized Health Care Education/Training Program
DX: I48.0 Paroxysmal atrial fibrillation (principal); E87.6 Hypokalemia; K21.9 Gastro-esophageal reflux disease without esophagitis; J45.909 Unspecified asthma, uncomplicated; E78.5 Hyperlipidemia, unspecified; E03.9 Hypothyroidism, unspecified; M81.0 Age-related osteoporosis without current pathological fracture; G47.33 Obstructive sleep apnea (adult) (pediatric); Z88.5 Allergy status to narcotic agent; Z79.890 Hormone replacement therapy; Z79.82 Long term (current) use of aspirin; Z79.899 Other long term (current) drug therapy
CPT/HCPCS: 71046; 80053; 83880; 84443; 84484; 85025; 85027; 93005; 93010; 99285-25; A9270

== ENCOUNTER → 2025-01-06 | Outpatient (CLI) | payer OTHER ==
[~2025-01-06] MED LIST changes: +Diflucan150 MG; +ELIQUIS5 M2 PO; +FUROSEMIDE20 MG PO; +JARDIANCE10 MG PO; +MONT10T PO; -OMEP20ER; +OMEP20ER PO; +Toprol Xl50 MG PO
[2025-01-06 18:08] LABS: Hematocrit 43.3 % (33.0-51.0); Hemoglobin 13.8 g/dL (11.5-16.0); Mean Corpuscular HGB Conc 31.9 g/dL (31.5-36.5); Mean Corpuscular Volume 97 fL (80-100); NRBC ABSOLUTE 0.00 K/mm3 (0.00-0.02); NRBC Auto 0.0 /100 WBC (0.0-0.2); Platelet Count 210 K/mm3 (150-400); RDW Coefficient Variation 13.9 % (11.7-14.2); RDW Standard Deviation 50.0 fL (35.1-46.3)
[2025-01-06 18:31] LABS: Alanine Aminotransfer (ALT/SGP 27.0 U/L (12-78); Albumin, Blood 3.2 g/dL (3.4-5.0); Albumin/Globulin Ratio 0.8 (0.8-1.8); Anion Gap 4.0 mmol/L (3-11); Aspartate Aminotrans (AST/SGOT 19.0 U/L (12-37); Bilirubin, Total 0.5 mg/dL (0.1-1.0); Blood Urea Nitrogen 14.0 mg/dL (8-24); CO2, Blood 34.0 mmol/L (21-32); Calcium, Blood 9.3 mg/dL (8.5-10.1); Chloride, Blood 104.0 mmol/L (98-108); Creatinine, Blood 0.76 mg/dL (0.40-1.00); Globulin, Blood 3.8 g/dL (2.2-4.0); Glucose, Blood 101.0 mg/dL (70-99); Potassium, Blood 3.4 mmol/L (3.5-5.5); Sodium, Blood 139.0 mmol/L (136-145); Thyroid Stimulating Hormone 1.14 uIU/mL (0.360-4.800); Total Protein, Blood 7.0 g/dL (6.4-8.2)
== END ==
LOC: LAB 17:42 → LAB SHORT 17:42
PROVIDERS: Family Medicine
DX: I48.0 Paroxysmal atrial fibrillation (principal); I50.33 Acute on chronic diastolic (congestive) heart failure
CPT/HCPCS: 80053; 83880; 84443; 85027